=== PATIENT | female | born 1960 | race Caucasian/White ===

== ENCOUNTER 2018-11-10 11:45 | Day surgery (SDC) | payer MEDICAID, OTHER ==
[2018-11-09 13:40] VITALS: BMI 28.9
[2018-11-10 12:44] LABS: INR 0.9; PROTHROMBIN TIME 10.2 SECONDS (9.7-12.2)
[2018-11-10] MEDS ORDERED: Propofol 10 mg/ml Inj (20 ML) ONE (13:27)
[2018-11-10] MEDS ORDERED: Midazolam 2 MG/2 ML VIAL ONE (13:27)
--- NOTE | 2018-11-10 13:27 | CP.SDSHP ---
Same Day Surgery H & P - History Proposed Procedure: Port placement Pre-Op Diagnosis: Breast cancer - Allergies Allergies: Allergies ibuprofen [From Motrin] Allergy (Verified 11/09/18 13:41) URTICARIA naproxen [From Aleve] Allergy (Verified 11/09/18 13:41) URTICARIA penicillin G Allergy (Verified 11/09/18 13:41) URTICARIA - Physical Exam Vital Signs: Vital Signs 11/10/18 11:58 Temperature 97.8 F Pulse Rate 71 Respiratory 20 Rate Blood Pressure 123/79 O2 Sat by Pulse 97 Oximetry Mental Status: Alert & Oriented x3 Neuro: WNL Heart: WNL Lungs: WNL - Impression Impression: Pt with breast cancer referred for port placement. Plan right chest port placement. Informed consent obtained. Pt. Evaluated Today:Candidate for Anesthesia & Procedure: Yes (ASA 3 Malampati 3) Short Stay Discharge - Short Stay Discharge Admitting Diagnosis/Reason for Visit: MALIGNANT NEOPLASM OF UNSP SITE OF UNSPECIFIED FEM Disposition: HOME/ ROUTINE Referrals: Nathalie Reinoso MD [Primary Care Provider] -
[2018-11-10] MEDS ORDERED: Clindamycin 600mg/50ml NS 600 MG/50 ML BAG IVPB ONE (13:29)
[2018-11-10] MEDS ORDERED: Sodium Chloride 0.9% 20 ML IV ONE ×2 (13:29→14:03)
[2018-11-10] MEDS ORDERED: HEPARIN-NS 5,000 UNITS/500 ML 5,000 UNIT/500 ML BAG IV ONE (13:30)
[2018-11-10] MEDS ORDERED: Lidocaine/Epinephrine 1% 1:100000 10 ML IJ ONE (13:30)
--- NOTE | 2018-11-10 14:11 | PCM.SURG1 ---
Surgeon's Initial Post Op Note - Surgeon's Notes Surgeon: Armen Staples MD Check Processing Clerk: NONE Type of Anesthesia: IV Sedation Pre-Operative Diagnosis: Breast cancer Operative Findings: US showed a patent right IJV Post-Operative Diagnosis: Breast cancer Operation Performed: Port placement right IJV Specimen/Specimens Removed: NONE Estimated Blood Loss: EBL {In ML}: 2 Blood Products Given: N/A Drains Used: No Drains Post-Op Condition: Good Date of Surgery/Procedure: 11/10/18 Time of Surgery/Procedure: 14:10
[2018-11-10] MEDS ORDERED: HYDROmorphone 0.5 mg/0.5 ml ISec IVP PRN (14:28)
[2018-11-10] MEDS ORDERED: Lactated Ringer's 1,000 ML IV SCH (14:30)
[2018-11-10 16:45] VITALS: TEMP 97.6
[2018-11-10 17:05] VITALS: BP 119/80; PULSE 71; RESP 18; O2SAT 98
--- NOTE | 2018-11-11 16:56 | RAD ---
Date of service: 11/10/2018 PROCEDURE: Intraoperative Fluoroscopy. HISTORY: BREAST CA FINDINGS: Fluoroscopic assistance was provided for Port-A-Cath placement. Please refer to the operative report from [facility]. Total fluoroscopic time (continuous mode) utilized during the procedure 9.9 seconds. Dose report: DLP [id number] (mGy/m2)
== END 2018-11-10 17:05 | disposition home or self-care (01) ==
LOC: C.SDS 11:45
PROVIDERS: ATTEND Radiology Vascular & Interventional Radiology
DX: C50.919 Malignant neoplasm of unspecified site of unspecified female breast (principal)
CPT/HCPCS: 36415; 36561; 71045; 82948; 85610; 85730; C1788; J1644; J2250; J2704; J3010; J7040